=== PATIENT | male | born 1980 | race Caucasian/White ===

== ENCOUNTER → 2022-05-04 12:51 | Outpatient (BNVA) | payer OTHER, SELFPAY | PROVIDERS: PCP Family Medicine; Referring Provider Emergency Medicine Emergency Medical Services; Visit Provider Podiatrist Foot & Ankle Surgery | DX: M21.41 Flat foot [pes planus] (acquired), right foot (principal); M21.42 Flat foot [pes planus] (acquired), left foot; M21.611 Bunion of right foot; M21.612 Bunion of left foot; M21.621 Bunionette of right foot; M21.622 Bunionette of left foot; M79.671 Pain in right foot; M79.672 Pain in left foot | CPT/HCPCS: 99204 ==

== ENCOUNTER 2024-02-14 14:43 | Emergency (ER) | payer OTHER, SELFPAY ==
[2024-02-14 14:51] VITALS: BP 180/98; PULSE 129; RESP 16; TEMP 36.6; O2SAT 98; BMI 29.0
--- NOTE | 2024-02-14 15:05 | ECG_ITS ---
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 Measurements Intervals [place] Rate: 124 P: 43 OK: 203 QRS: 3 QRSD: 70 T: 23 QT: 285 QTc: 410 Interpretive Statements SINUS TACHYCARDIA NONSPECIFIC T-WAVE ABNORMALITY ABNORMAL RHYTHM ECG No previous ECG available for comparison Electronically Signed On 02-14-2024 18:55:07 CDT by Shan Morocho M.D. [id number]
--- NOTE | 2024-02-14 15:05 | XRR_ITS ---
PROCEDURE INFORMATION: Exam: XR Chest Exam date and time: 02/14/2024 3:39 PM Age: 43 years old Clinical indication: Other: Racing hr TECHNIQUE: Imaging protocol: Radiologic exam of the chest. Views: 1 view. COMPARISON: No relevant prior studies available. FINDINGS: Lungs: There is no consolidation. Pleural spaces: There is no pleural effusion or pneumothorax. Heart/Mediastinum: Cardiomediastinal contours are unremarkable. Bones/joints: Bones are unremarkable. XR/XR chest 1V portable [id number] IMPRESSION: No acute findings.
--- NOTE | 2024-02-14 15:05 | ED_ITS ---
HPI - Arrhythmia/Palpitations 2 General: Chief Complaint: Arrhythmia/Palpitations Stated Complaint: feeling off, numbess in arms Time Seen by Provider: 02/14/24 14:58 Source: patient and family Mode of arrival: wheelchair Limitations: no limitations History of Present Illness: Patient is a nice 43-year-old male presents to the ED today along with his for evaluation. Patient states he woke up this morning feeling nauseous. States that to work he began developing some chest heaviness and felt like his arms and feet were going numb. He states coworkers reportedly checked his pulse rate and it was in the 130s thus prompting him to come to the emergency department. Patient states he does have a history of anxiety and panic attacks and states all of his symptoms feel similar to this. He feels slightly short of breath. Upon arrival to the ED his chest heaviness has improved. His teeth are chattering which he states he does when he has anxiety attacks . No known cardiac or pulmonary problems. He states he does have elevated cholesterol and triglycerides. MD complaint: heart racing Onset (ago): hour(s) Duration: constant Severity: moderate Context: awoke with symptoms Associated symptoms: Reports anxiety and nausea; Deny pre-syncope, syncope or vomiting Review of Systems 2 Const: Reports: fatigue; Denies: fever(s), chills, body aches or malaise Eyes: Denies: change in vision, blurry vision or photophobia ENMT: Denies: throat pain, odynophagia, nasal discharge, nasal congestion or sinus pain Card: Reports: chest pain and palpitations (feeling like his heart is beating fast); Denies: irregular heart rhythm, edema, lightheadedness, syncope, pre-syncope, dyspnea on exertion, orthopnea, leg pain with exertion or acrocyanosis Resp: Reports: dyspnea; Denies: productive cough or pain on inspiration GI: Reports: nausea; Denies: abdominal pain, vomiting, heartburn or diarrhea : Denies: flank pain, difficulty urinating, dysuria, urinary frequency or urinary urgency Musc: Denies: neck pain, back pain, extremity pain, extremity swelling or joint pain Skin/Breast: Denies: rash Neuro: Reports: sensory changes (states feet/hands are going numb); Denies: headache(s), numbness in extremities or weakness in extremities Psych: Reports: anxiety PFSH ED 2 PFSH: Social History Smoking and tobacco/nicotine status: former use of tobacco/nicotine Physical Exam 2 Const: COMMON NORMALS: average body habitus, patient oriented x3, no limitations, healthy appearing, alert and well nourished GENERAL APPEARANCE: anxious ORIENTATION/CONSCIOUSNESS: Yes awake, Yes oriented to person, Yes oriented to place and Yes oriented to time OTHER: shivering/teeth chattering-states he does this when he is anxious HENMT: COMMON NORMALS: normocephalic and atraumatic HEAD & SCALP: normal to inspection, normocephalic and atraumatic Neck/C-Spine: COMMON NORMALS: full ROM, no lymphadenopathy, no meningeal signs and no JVD GENERAL: Yes normal visual inspection Chest: COMMONS NORMALS: normal inspection of the chest and normal palpation of entire chest wall Resp: COMMON NORMALS: normal respiratory effort and clear to auscultation bilaterally AUSCULTATION: clear to auscultation bilaterally Cardio: COMMON NORMALS: no JVD, regular rhythm, S1 normal heart sound present, S2 normal heart sound present, No gallops present (Cardio), No clicks present (Cardio), No rub (Cardio) and Peripheral pulses 2+ throughout JUGULAR VENOUS DISTENTION: no JVD RATE: tachycardic RHYTHM: regular rhythm HEART SOUNDS: S1 normal heart sound present and S2 normal heart sound present P ERIPHERAL PULSES: Peripheral pulses 2+ throughout GI: COMMON NORMALS: Normal to inspection, nondistended, normoactive bowel sounds present, Soft to palpation and non-tender PALPATION: Yes Soft to palpation Extremity: COMMON NORMALS: capillary refill normal, no joint enlargement, no clubbing, cyanosis or edema, no calf tenderness and no pedal edema Neuro: ERIKA COMA SCALE: document GCS findings Erika coma scale eye opening: Spontaneous [place] coma scale verbal response: Orientated Erika coma scale motor response: Obey commands [place] coma scale total score: 15 COMMON NORMALS: patient oriented x3 SENSORIUM/ORIENTATION: Yes alert, Yes oriented to person, Yes oriented to place and Yes oriented to time MENINGEAL SIGNS: Y es no meningeal signs Skin: COMMON NORMALS: no rashes or lesions noted GENERAL SKIN EXAM: no rashes or lesions noted Course 2 Reevaluation(s): Reevaluation #1: Patient states he feels significant better after given anxiolytics. He is resting comfortably in no acute distress. He does not complain of shortness of breath, palpitations, or chest heaviness. He no longer appears anxious or tremulous. He does remain tachycardic. Will go ahead and treat him with a liter of fluids and will run a D-dimer. His EKG apart from sinus tachycardia is unremarkable. CXR is normal. Blood work including troponin is normal. Anticipate discharge if D-dimer is negative and following his fluids. Vital Signs: Vital signs: Vital Signs Temperature 97.9 F 02/14/24 14:51 Pulse Rate 110 H 02/14/24 15:55 Respiratory Rate 16 02/14/24 14:51 Blood Pressure 140/92 02/14/24 15:55 Pulse Oximetry 98 02/14/24 14:51 MDM - Arrhythmia/Palpitations Medical Decision Making Patient's symptoms most likely secondary to anxiety. Extensive workup here including EKG, CXR, lab work including troponin and D-dimer are all negative apart from sinus tachycardia. Patient will be allowed discharge with instructions to follow-up with his primary care provider. Return to ED precautions given. Differential Diagnosis Likely palpitations, anxiety and sinus tachycardia Lab Data 02/14/24 15:10 02/14/24 15:10 Radiology Impressions Chest X-Ray 02/14/24 15:05 IMPRESSION: No acute findings. Laboratory Results WBC 13.35 10^3/uL (3.29-11.43) H 02/14/24 15:10 RBC 5.71 10^6/uL (3.85-5.65) H 02/14/24 15:10 Hgb 17.20 g/dL (11.27-16.99) H 02/14/24 15:10 Hct 49.4 % (37-53) 02/14/24 15:10 MCV 86.5 fl (82-101) 02/14/24 15:10 MCH 30.1 pg (27-33) 02/14/24 15:10 MCHC 34.8 g/dL (30-55) 02/14/24 15:10 RDW 12.6 % (12.1-15.1) 02/14/24 15:10 Plt Count 167 10^3/cmm (157-399) 02/14/24 15:10 MPV 8.4 fL (7.4-10.4) 02/14/24 15:10 Neut % (Auto) 90.1 % 02/14/24 15:10 Lymph % (Auto) 4.8 % 02/14/24 15:10 [place] % (Auto) 4.3 % 02/14/24 15:10 Eos % (Auto) 0.2 % 02/14/24 15:10 Baso % (Auto) 0.3 % 02/14/24 15:10 Neut # (Auto) 12.02 10^3/uL (1.8-7.7) H 02/14/24 15:10 Lymph # (Auto) 0.6 10^3/uL (0.8-4.8) L 02/14/24 15:10 [place] # (Auto) 0.6 10^3/uL (0.2-0.9) 02/14/24 15:10 Eos # (Auto) 0.0 10^3/uL (0.0-0.8) 02/14/24 15:10 Baso # (Auto) 0.0 10^3/uL (0.0-0.1) 02/14/24 15:10 Nucleated RBC % (auto) 0 % 02/14/24 15:10 Nucleated RBCs # 0.0 /100WBC 02/14/24 15:10 D-Dimer 0.59 ug/mLFEU (0-0.59) 02/14/24 15:10 Sodium 133 mmol/L (136-145) L 02/14/24 15:10 Potassium 4.2 mmol/L (3.5-5.1) 02/14/24 15:10 Chloride 97 mmol/L (98-107) L 02/14/24 15:10 Carbon Dioxide 23 mmol/L (22-29) 02/14/24 15:10 Anion Gap 17.2 (5-19) 02/14/24 15:10 BUN 11 mg/dL (6-20) 02/14/24 15:10 Creatinine 0.9 mg/dL (0.7-1.2) 02/14/24 15:10 GFR Calculation 92.1 mL/min (90-130) 02/14/24 15:10 Glucose 81 mg/dL (65-115) 02/14/24 15:10 Calculated Osmolality 274 mOsm/kg (285-295) L 02/14/24 15:10 Calcium 9.7 mg/dL (8.5-10.5) 02/14/24 15:10 Total Bilirubin 0.5 mg/dL (0.15-1.2) 02/14/24 15:10 AST 23 U/L (0-40) 02/14/24 15:10 ALT 14 U/L (0-41) 02/14/24 15:10 Alkaline Phosphatase 92 U/L (40-130) 02/14/24 15:10 Troponin T Baseline < 6 ng/L (0-15) 02/14/24 15:10 Total Protein 7.7 g/dL (6.6-8.7) 02/14/24 15:10 Albumin 4.9 g/dL (3.5-5.2) 02/14/24 15:10 Globulin 2.8 g/dL (1.3-4.6) 02/14/24 15:10 TSH 1.01 uIU/mL (0.27-4.20) 02/14/24 15:10 All radiology interpretation(s) finalized by discharge Discharge Plan Discharge Patient Disposition: Home Clinical Impression: Anxiety, Sinus tachycardia Condition: Stable Prescriptions: No Action (DME) LAURA&O - custom insole- sport low profile 3/4 length- 1 pair See Rx Instructions .Route .MEDSUPPLY Qty: 1 0RF Rx Instructions: use daily Apple Cider Vinegar Liquid 1 tbsp PO BID multivitamin Tablet 1 tab PO QAM Fish Oil Concentrate 1,000 mg Capsule 1,000 mg PO BID Aspir-81 81 mg Tablet,Delayed Release (Dr/Ec) 81 mg PO QAM pantoprazole 40 mg tablet,delayed release (DR/EC) 40 mg PO DAILY PRN (Reason: Heartburn) CoQ-10 100 mg Capsule 100 mg PO QAM Vitamin D3 50 mcg (2,000 unit) tablet 2,000 unit PO BID Discharge Orders: Discharge ED (Routine); Ordered 02/14/24 Ordered By: Celina Pereira Referrals: Mark Perez MD [Primary Care Provider] - Activity Restrictions/Additional Instructions: As we discussed I feel symptoms today most likely are related to anxiety. Cardiac workup here was negative. I would like you to follow-up with your primary care provider for further evaluation if needed for your symptoms. You need to return to the emergency department for chest pain/heaviness, shortness of breath, difficulty breathing, feeling like your heart is racing or skipping beats, lightheadedness/dizziness/passing out episodes, generally feeling worse or unwell, or any other concerns you may have. Coding Level of Care Code ED Boil [employer] for Eduard Hodge
--- NOTE | 2024-02-14 15:15 | PC.PHAR ---
pt states he takes care of his own medications-pt states about 3 weeks ago the [facility] for [facility] triglycerides but states he never got-pt states he is only taking the medications entered-waiting on [facility] to fax med list to see if more medications are on there
[2024-02-14] MEDS: LORazepam 2 mg/mL INJ 10 mL MDV 1 MG IVP ×2 (15:29→18:31)
[2024-02-14] MEDS: metoprolol tartrate 1 mg/1 mL SDV 5 mL 2.5 MG IVP (15:29)
[2024-02-14 15:34] LABS: Basophils % 0.3 %; Eosinophils % 0.2 %; Hematocrit 49.4 % (37-53); Lymphocytes # 0.6 10^3/uL (0.8-4.8); Lymphocytes % 4.8 %; Mean Corpuscular HGB Conc 34.8 g/dL (30-55); Mean Corpuscular Hemoglobin 30.1 pg (27-33); Mean Corpuscular Volume 86.5 fl (82-101); Mean Platelet Volume 8.4 fL (7.4-10.4); Monocytes # 0.6 10^3/uL (0.2-0.9); Monocytes % 4.3 %; Neutrophils # 12.02 10^3/uL (1.8-7.7); Neutrophils % 90.1 %; Nucleated Red Blood Cells % 0 %; Platelet Count 167 10^3/cmm (157-399); Red Blood Count 5.71 10^6/uL (3.85-5.65); Red Cell Distribution Width 12.6 % (12.1-15.1); White Blood Count 13.35 10^3/uL (3.29-11.43)
[2024-02-14 15:55] VITALS: BP 140/92; PULSE 110
[2024-02-14 16:01] LABS: Troponin(5th) Baseline < 6 ng/L (0-15)
[2024-02-14 16:13] LABS: Alanine Aminotransferase 14 U/L (0-41); Albumin Level 4.9 g/dL (3.5-5.2); Alkaline Phosphatase 92 U/L (40-130); Aspartate Amino Transferase 23 U/L (0-40); Blood Urea Nitrogen 11 mg/dL (6-20); Calcium 9.7 mg/dL (8.5-10.5); Carbon Dioxide 23 mmol/L (22-29); Chloride 97 mmol/L (98-107); Globulin 2.8 g/dL (1.3-4.6); Glomerular Filtration Rate 92.1 mL/min (90-130); Glucose 81 mg/dL (65-115); Osmolality Calculated 274 mOsm/kg (285-295); Sodium 133 mmol/L (136-145); Thyroid Stimulating Hormone 1.01 uIU/mL (0.27-4.20); Total Bilirubin 0.5 mg/dL (0.15-1.2); Total Protein 7.7 g/dL (6.6-8.7)
[2024-02-14 16:29] LABS: Anion Gap 17.2 (5-19); Potassium 4.2 mmol/L (3.5-5.1)
[2024-02-14 16:55] LABS: D Dimer 0.59 ug/mLFEU (0-0.59)
[2024-02-14] MEDS: sodium chloride 0.9% 1,000 ML 999 ML IV (17:13)
[2024-02-14 17:46] LABS: Troponin 5 2HR 6.18 ng/L (0-15); Troponin 5 2HR Delta 0.18001 ABS# (0-10)
== END 2024-02-14 18:48 | disposition home or self-care (01) ==
PROVIDERS: Emergency Provider Physician Assistant; PCP Family Medicine
DX: F41.9 Anxiety disorder, unspecified (principal); R00.0 Tachycardia, unspecified; Z79.82 Long term (current) use of aspirin; Z87.891 Personal history of nicotine dependence
CPT/HCPCS: 36415; 71045; 80053; 84443; 84484; 85025; 85378; 93005; 96374; 96375; 96376; 99285; J2060; J3490; J7030

== ENCOUNTER 2025-04-18 14:48 | Outpatient (CLI) | payer OTHER, SELFPAY | END 2025-04-18 14:49 | disposition home or self-care (01) | LOC: SLEEP 14:49 | PROVIDERS: PCP Family Medicine; Referring Provider Nurse Practitioner Family; Visit Provider Internal Medicine Pulmonary Disease | DX: G47.33 Obstructive sleep apnea (adult) (pediatric) (principal) | CPT/HCPCS: G0399 ==